=== PATIENT | female | born 1975 | race Caucasian/White ===

== ENCOUNTER 2019-05-21 17:41 | Emergency (ER) | payer MEDICAID ==
[~2019-05-21] VITALS: Ht 168.9 cm; Wt 107.1 kg
[~2019-05-21 17:41] MED LIST: ALBU18HF2 INH
[2019-05-21 20:16] VITALS: BP 118/80
== END 2019-05-21 20:21 | disposition home or self-care (01) ==
LOC: ER 17:42
DX: R55 Syncope and collapse (principal); R42 Dizziness and giddiness; R20.2 Paresthesia of skin; R51 Headache; R20.0 Anesthesia of skin; Z98.51 Tubal ligation status; Z91.09 Other allergy status, other than to drugs and biological substances; Z79.899 Other long term (current) drug therapy
CPT/HCPCS: 93005; 99283

== ENCOUNTER 2024-03-22 00:55 | Emergency (ER) | payer MEDICAID ==
[~2024-03-22] VITALS: Ht 167.6 cm; Wt 110.0 kg
[2024-03-22 03:14] LABS: URINE HCG NEGATIVE (NEG)
[2024-03-22] MEDS: lactulose 20gm/30ml cup PO ONE (03:35)
[2024-03-22] MEDS: bisacodyl 10mg suppository rectal RC STA (03:35)
[2024-03-22 03:44] VITALS: BP 115/60; PULSE 92; RESP 16; TEMP 98.2; O2SAT 97
== END 2024-03-22 03:37 | disposition home or self-care (01) ==
LOC: ER 00:57
DX: K59.09 Other constipation (principal); F43.10 Post-traumatic stress disorder, unspecified; Z98.51 Tubal ligation status
CPT/HCPCS: 74018; 81025; 99284

== ENCOUNTER 2024-04-30 06:31 | Emergency (ER) | payer MEDICAID ==
[~2024-04-30] VITALS: Ht 168.9 cm; Wt 100.4 kg
[2024-04-30 09:08] LABS: BASOPHILS % (AUTO) 0.4 % (0-1); EOSINOPHILS # (AUTO) 0.1 X10'3 (0-0.9); EOSINOPHILS % (AUTO) 0.8 % (0-6); HEMATOCRIT 38.7 % (35.0-45.0); HEMOGLOBIN 13.4 g/dl (12.0-16.0); LYMPHOCYTES # (AUTO) 1.3 X10'3 (1.1-4.8); LYMPHOCYTES % (AUTO) 16.6 % (21-51); MEAN CORPUSCULAR HEMOGLOBIN 29.4 PG (27.0-31.0); MEAN CORPUSCULAR HGB CONC 34.6 g/dL (33.0-36.5); MEAN PLATELET VOLUME 9.2 FL (7.4-10.4); MONOCYTES # (AUTO) 0.5 X10'3 (0-0.9); MONOCYTES % (AUTO) 6.6 % (2-12); NEUTROPHILS # (AUTO) 5.7 X10'3 (1.8-7.7); NEUTROPHILS % (AUTO) 75.6 % (42-75); PLATELET COUNT 274 X10'3 (140-440); RED BLOOD COUNT 4.56 X10'6 (4.20-5.60); WHITE BLOOD COUNT 7.5 X10'3 (4.5-11.0)
[2024-04-30 09:16] LABS: HCG SERUM QL NEGATIVE
[2024-04-30 09:25] LABS: ALANINE AMINOTRANSFERASE 21 U/L (12-78); ALBUMIN 3.3 G/DL (3.4-5.0); ALBUMIN/GLOBULIN RATIO 0.9 (1.1-1.5); ALKALINE PHOSPHATASE 53 IU/L (46-116); ANION GAP 10 (8-16); ASPARTATE AMINO TRANSFERASE 14 U/L (10-37); BILIRUBIN,TOTAL 1.8 MG/DL (0.1-1.0); BLOOD UREA NITROGEN 11 MG/DL (7-18); BUN/CREATININE RATIO 14.5 (10.0-20.0); CALCIUM 8.7 MG/DL (8.5-10.1); CHLORIDE 103 MMOL/L (99-107); CREATININE 0.76 MG/DL (0.40-0.90); GLUCOSE 95 MG/DL (70-104); LIPASE 22 U/L (16-77); POTASSIUM 3.1 MMOL/L (3.5-5.1); SODIUM 138 MMOL/L (135-145); TOTAL CARBON DIOXIDE 25.1 MMOL/L (24-32); TOTAL PROTEIN 6.8 G/DL (6.4-8.2); eCRCL 87 ML/MIN; eGFR 82 ML/MIN
[2024-04-30] MEDS ORDERED: iohexol 300mg/ml 100ml inj. ONE (09:33)
[2024-04-30] MEDS: potassium Cl 20 mEq SR tablet PO STA (11:57)
[2024-04-30 12:13] VITALS: BP 158/89; PULSE 87; RESP 18; TEMP 98; O2SAT 95
== END 2024-04-30 12:15 | disposition home or self-care (01) ==
LOC: ER 06:32
DX: K59.00 Constipation, unspecified (principal); E87.6 Hypokalemia; K62.89 Other specified diseases of anus and rectum; Z88.0 Allergy status to penicillin; Z88.8 Allergy status to other drugs, medicaments and biological substances; Z79.899 Other long term (current) drug therapy; Z98.51 Tubal ligation status
CPT/HCPCS: 36415; 74177; 80053; 83605; 83690; 84703; 85025; 99285; Q9967

== ENCOUNTER 2024-05-04 23:42 | Emergency (ER) | payer MEDICAID ==
[~2024-05-04] VITALS: Ht 167.6 cm; Wt 97.7 kg
[2024-05-05] MEDS ORDERED: BISA-78 PO (05:39)
[2024-05-05] MEDS ORDERED: POLY119P2 PO (05:39)
[2024-05-05] MEDS: LIDOcaine 2% Viscous 15ml cup MM ONE (05:42)
[2024-05-05] MEDS: ondansetron 4mg rapidly disintigrating tab PO ONE (05:43)
[2024-05-05] MEDS: bisacodyl 5mg tablet.DR PO ONE (06:15)
[2024-05-05 06:23] VITALS: BP 143/89; PULSE 94; RESP 14; TEMP 98.5; O2SAT 96
== END 2024-05-05 06:24 | disposition home or self-care (01) ==
LOC: ER 23:42
DX: K59.00 Constipation, unspecified (principal); Z98.51 Tubal ligation status; Z88.0 Allergy status to penicillin; Z91.048 Other nonmedicinal substance allergy status; Z79.899 Other long term (current) drug therapy
CPT/HCPCS: 99284